=== PATIENT | female | born 1970 | race Caucasian/White ===

== ENCOUNTER 2016-06-01 08:59 | Outpatient (CLI) ==
[2015-02-26 13:39] VITALS: BMI 24.3
[2016-06-01 09:34] LABS: CREATININE 0.75 mg/dL (0.60-1.30)
--- NOTE | 2016-06-01 11:14 | CT ---
Examination: CT imaging of the neck soft tissues without intravenous contrast followed by CT examin ation of the neck soft tissues with intravenous contrast. Comparison: 06/30/2014. Reason for study: Neck mass. FINDINGS: The partially imaged intracranial structures and skull base are unremarkable. The glotti c structures in base of tongue are unremarkable. The oropharynx is symmetric without mass lesion. The parotid and submandibular glands are unremarkable. The vocal cords are normal. The thyroid gla nd is unremarkable. No radiographically significant lymph node enlargement. There are bullous che es seen in both lung apices. No acute fracture or spondylolisthesis is seen within the cervical spi ne. There are no discrete vascular anomalies seen within the soft tissues of the neck. Impression: 1. No evidence of soft tissue mass within the neck or evidence of cervical lymph node enlargement. 2. Persistent apical blunting.
== END 2016-06-01 09:00 | disposition home or self-care (01) ==
LOC: RAD 08:59
PROVIDERS: ATTEND Nurse Practitioner
DX: R22.1 Localized swelling, mass and lump, neck (principal)
CPT/HCPCS: 36415; 82565

== ENCOUNTER 2017-01-01 19:14 | Outpatient (CLI) ==
[2016-12-19 08:39] VITALS: BMI 24.3
--- NOTE | 2017-01-02 08:23 | DI ---
EXAM: Three views of the left foot. History: Left foot trauma. Findings / impression: No acute fracture or dislocation. Joint spaces are preserved. No metallic radiopaque foreign bodies identified within the soft tissues.
== END 2017-01-01 19:15 | disposition home or self-care (01) ==
LOC: RAD 19:14
PROVIDERS: ATTEND Nurse Practitioner
DX: S91.331S Puncture wound without foreign body, right foot, sequela (principal)